=== PATIENT | male | born 1950 | race Caucasian/White ===

== ENCOUNTER 2021-04-12 12:50 | Emergency (ER) | payer OTHER ==
[~2021-04-12] VITALS: Ht 160 cm; Wt 63.5 kg
== END 2021-04-12 16:09 | disposition home or self-care (01) ==
LOC: ED 12:50
DX: S51.811A Laceration without foreign body of right forearm, initial encounter (principal); W26.8XXA Contact with other sharp object(s), not elsewhere classified, initial encounter; Y93.89 Activity, other specified; Y92.79 Other farm location as the place of occurrence of the external cause; Y99.8 Other external cause status

== ENCOUNTER → 2021-04-22 | Outpatient (CLI) | payer OTHER | LOC: WOUNDCARE 09:27 | PROVIDERS: ATTEND Nurse Practitioner | DX: S61.511A Laceration without foreign body of right wrist, initial encounter (principal); I48.91 Unspecified atrial fibrillation; Z90.49 Acquired absence of other specified parts of digestive tract; X58.XXXA Exposure to other specified factors, initial encounter; Y93.89 Activity, other specified; Y92.89 Other specified places as the place of occurrence of the external cause; Y99.8 Other external cause status ==

== ENCOUNTER → 2021-04-26 | Outpatient (CLI) | payer OTHER | LOC: WOUNDCARE 08:26 | PROVIDERS: ATTEND Nurse Practitioner | DX: S61.511D Laceration without foreign body of right wrist, subsequent encounter (principal); L03.113 Cellulitis of right upper limb; I48.91 Unspecified atrial fibrillation; Z90.49 Acquired absence of other specified parts of digestive tract; X58.XXXD Exposure to other specified factors, subsequent encounter ==